=== PATIENT | male | born 1960 | race Caucasian/White ===

== ENCOUNTER 2022-03-09 21:26 | Emergency (ER) | payer OTHER ==
[~2022-03-09 21:26] MED LIST: ADULT LOW DOSE81 MG PO; APIDRA100 UNIT/1 SQ; AZITHROMYCIN500 MG PO; CATAPRES 0.1MG0.1 MG PO; CLONAZEPAM1 MG PO; COZAAR 25MG TAB25 MG PO; GLUCOPHAGE 500500 MG PO; HYDROCHLOROTHIA50 MG PO; IBUPROFEN800 MG PO; JARDIANCE25 MG PO; LEVEMIR100 UNIT/1 SQ; LIPITOR TAB 1010 MG PO; NEURONTIN800 MG PO; PNEUMOVAX IM; TENORMIN 50 MG50 MG PO
== END 2022-03-09 22:00 | disposition left against medical advice (07) ==
LOC: ER1 21:26
DX: E11.65 Type 2 diabetes mellitus with hyperglycemia (principal)
CPT/HCPCS: 99283